=== PATIENT | male | born 1945 | race Caucasian/White ===

== ENCOUNTER 2022-03-01 14:56 | Emergency (ER) | payer BC, SELFPAY ==
[2022-03-01 14:54] VITALS: BP 135/91; PULSE 90; RESP 18; TEMP 36.5; O2SAT 96
--- NOTE | 2022-03-01 15:19 | NUR.NOTE ---
Nursing Note: Entered on tracker with initials and given by EMS. Wrong patient. Taken off tracker.
== END 2022-03-01 15:00 ==
LOC: ER 19:44
PROVIDERS: Emergency Provider Student in an Organized Health Care Education/Training Program
DX: Z53.29 Procedure and treatment not carried out because of patient's decision for other reasons (principal)